=== PATIENT | female | born 1990 | race Caucasian/White ===

== ENCOUNTER 2017-06-03 11:59 | Outpatient (CLI) | payer BC, OTHER ==
[~2017-06-03] VITALS: Ht 149.9 cm; Wt 62.5 kg
[~2017-06-03 11:59] MED LIST: ANTIVERT25 MG PO; Motrin PO; Percocet 5/325,Endoc PO; ZOFRAN ODT4 MG PO
[2017-06-03 12:32] VITALS: BP 132/95
[2017-06-03] MEDS ORDERED: ZOFRAN8 MG PO (12:50)
[2017-06-03] MEDS ORDERED: PRENATAL TABLE1 EAC3 PO (12:51)
[2017-06-03] MEDS ORDERED: TYLENOL EXTRA500 MG PO (12:52)
[2017-06-03] MEDS ORDERED: ZANTAC150 MG PO (12:52)
[2017-06-03] MEDS ORDERED: ASPIR 8181 M1 PO (12:53)
[2017-06-03 12:57] VITALS: BP 131/91
[2017-06-03 13:17] VITALS: BP 120/80
[2017-06-03 13:26] LABS: ALKALINE PHOSPHATASE 149 IU/L (3-129); ANION GAP 9 MEQ/L (2-14); CHLORIDE 102 MEQ/L (99-109); GFR ESTIMATE (CALCULATED) > 59 mL/min/; GLUCOSE 66 mg/dL (70-99); POTASSIUM 3.9 MEQ/L (3.7-5.4); SAMPLE HEMOLYSIS CHECK 0; SAMPLE ICTERIC CHECK 0; SAMPLE LIPEMIA CHECK 0; SODIUM 134 MEQ/L (136-147); TOTAL BILIRUBIN 0.3 MG/DL (0.0-1.0); UREA NITROGEN (BUN) 9 mg/dL (9-23)
[2017-06-03 13:37] VITALS: BP 116/79
[2017-06-03 13:56] LABS: UR CREATININE CONCENTRATION 29.9 MG/DL
[2017-06-03 14:08] LABS: BASOPHIL COUNT 0.1 K/uL (0-0.1); EOSINOPHIL (%) 0.2 % (0-5); HEMATOCRIT 32.7 % (36.0-46.0); IMMATURE GRANULOCYTE (%) 0.3 % (0.0-0.7); INSTRUMENT ABS NEUTROPHIL CT 7.3 K/uL; LYMPHOCYTE COUNT 1.5 K/uL (1.0-2.8); MCH 28.9 PG (29.0-34.0); MCHC 33.3 G/DL (30.0-36.0); MCV 86.7 FL (83-99); MEAN PLAT.VOLUME 12.6 uM^3 (9.5-12.4); MONOCYTE (%) 5.1 % (3-12); MONOCYTE COUNT 0.5 K/uL (0-0.8); NEUTROPHIL (%) 77.9 % (45-76); NEUTROPHIL COUNT 7.3 K/uL (1.8-6.4); PLATELET COUNT 182 K/uL (156-360); RBC DIS.WIDTH-CV 12.5 % (11.8-14.6); RBC DIS.WIDTH-SD 39.4 % (39-53); RED BLOOD COUNT 3.77 M/uL (3.80-5.20); WHITE BLOOD COUNT 9.3 K/uL (4.1-10.2)
[2017-06-03 15:13] VITALS: BP 138/89
[2017-06-03 17:11] LABS: AMPHETAMINES QUANT VALUE 0 NG/ML; BARBITUATES QUANT VALUE 0 NG/ML; BENZODIAZEPINES QUANT VALUE 0 NG/ML; BENZODIAZEPINES, URINE SCREEN Negative (200 ng/mL); MARIJUANA QUANT VALUE 0 NG/ML; OPIATES QUANTITATIVE VALUE 0 NG/ML; PHENCYCLIDINE QUANT VALUE 0 NG/ML
== END 2017-06-03 17:39 | disposition home or self-care (01) ==
LOC: LDRP-OP 11:59 → 2WEST 12:00 → LDRP-OP 08-07 14:04
PROVIDERS: Nurse Practitioner
DX: O16.3 Unspecified maternal hypertension, third trimester (principal); Z3A.35 35 weeks gestation of pregnancy
CPT/HCPCS: 59025; 80053; 80306 90; 82570; 84156; 85025; G0378; J2765; J7120

== ENCOUNTER 2017-06-05 14:41 | Inpatient (IN) | payer BC, OTHER ==
[~2017-06-05] VITALS: Ht 149.9 cm; Wt 64.4 kg
[2017-06-05] VITALS (8 sets, daily range): BP systolic 131–165; BP diastolic 71–100
[~2017-06-05 14:41] MED LIST changes: +ASPIR 8181 M1 PO; +PRENATAL TABLE1 EAC3 PO; +TYLENOL EXTRA500 MG PO; +ZANTAC150 MG PO; +ZOFRAN8 MG PO
[2017-06-05 16:23] LABS: EOSINOPHIL (%) 0.3 % (0-5); HEMATOCRIT 30.2 % (36.0-46.0); IMMATURE GRANULOCYTE (%) 0.5 % (0.0-0.7); LYMPHOCYTE COUNT 1.4 K/uL (1.0-2.8); MCH 29.9 PG (29.0-34.0); MCHC 34.1 G/DL (30.0-36.0); MCV 87.5 FL (83-99); MEAN PLAT.VOLUME 12.9 uM^3 (9.5-12.4); MONOCYTE (%) 4.8 % (3-12); MONOCYTE COUNT 0.4 K/uL (0-0.8); NEUTROPHIL (%) 76.1 % (45-76); PLATELET COUNT 166 K/uL (156-360); RBC DIS.WIDTH-CV 12.7 % (11.8-14.6); RBC DIS.WIDTH-SD 39.8 % (39-53); RED BLOOD COUNT 3.45 M/uL (3.80-5.20); WHITE BLOOD COUNT 7.9 K/uL (4.1-10.2)
[2017-06-05 16:24] LABS: UR CREATININE CONCENTRATION 94.4 MG/DL
[2017-06-05 17:08] LABS: ALKALINE PHOSPHATASE 139 IU/L (3-129); ANION GAP 11 MEQ/L (2-14); CHLORIDE 107 MEQ/L (99-109); GFR ESTIMATE (CALCULATED) > 59 mL/min/; GLUCOSE 82 mg/dL (70-99); POTASSIUM 3.8 MEQ/L (3.7-5.4); SAMPLE HEMOLYSIS CHECK 0; SAMPLE ICTERIC CHECK 0; SAMPLE LIPEMIA CHECK 0; SODIUM 139 MEQ/L (136-147); UREA NITROGEN (BUN) 10 mg/dL (9-23)
[2017-06-05 17:15] LABS: TOTAL BILIRUBIN 0.2 MG/DL (0.0-1.0)
[2017-06-05] MEDS ORDERED: PERCOCET 5/31 TABLET PO (20:55)
[2017-06-05] MEDS ORDERED: MOTRIN800 MG PO (20:55)
[2017-06-06] VITALS (9 sets, daily range): BP systolic 115–154; BP diastolic 75–99
[2017-06-06 06:48] LABS: EOSINOPHIL (%) 0 % (0-5); HEMATOCRIT 27.7 % (36.0-46.0); IMMATURE GRANULOCYTE (%) 0.9 % (0.0-0.7); IMMATURE GRANULOCYTE COUNT 0.1 K/uL; INSTRUMENT ABS NEUTROPHIL CT 13.3 K/uL; LYMPHOCYTE COUNT 1.2 K/uL (1.0-2.8); MCH 30.5 PG (29.0-34.0); MCHC 34.7 G/DL (30.0-36.0); MCV 87.9 FL (83-99); MEAN PLAT.VOLUME 13.2 uM^3 (9.5-12.4); MONOCYTE (%) 1.8 % (3-12); MONOCYTE COUNT 0.3 K/uL (0-0.8); NEUTROPHIL (%) 89.1 % (45-76); NEUTROPHIL COUNT 13.3 K/uL (1.8-6.4); PLATELET COUNT 176 K/uL (156-360); RBC DIS.WIDTH-CV 12.6 % (11.8-14.6); RBC DIS.WIDTH-SD 39.8 % (39-53); RED BLOOD COUNT 3.15 M/uL (3.80-5.20); WHITE BLOOD COUNT 14.9 K/uL (4.1-10.2)
[2017-06-07 03:12] VITALS: BP 141/87
[2017-06-07 07:19] VITALS: BP 136/88
[2017-06-07 12:00] VITALS: BP 139/84
[2017-06-07 15:04] VITALS: BP 149/93
[2017-06-07 22:34] VITALS: BP 140/95
[2017-06-08] VITALS (9 sets, daily range): BP systolic 117–173; BP diastolic 74–96
[2017-06-09 03:16] VITALS: BP 119/73
[2017-06-09] MEDS ORDERED: LABETALOL HCL100 MG PO (08:18)
[2017-06-09] MEDS ORDERED: NIFEDIPINE10 MG PO (08:18)
[2017-06-09] MEDS ORDERED: DOCUSATE SODIU100 MG PO (08:18)
[2017-06-09 08:31] VITALS: BP 134/86
[2017-06-09 11:33] VITALS: BP 144/90
[2017-06-09 13:57] VITALS: BP 147/93
[2017-06-09 17:47] VITALS: BP 141/88
== END 2017-06-09 19:40 | disposition home or self-care (01) | DRG 765 ==
LOC: LDRP-OP 14:41 → 2WEST 14:42 → LDRP-OP 08-07 19:22
PROVIDERS: Midwife; Obstetrics & Gynecology
PROC: 10D00Z1 Extraction of Products of Conception, Low, Open Approach (ICD-10-PCS; principal; 2017-06-05)
DX: O14.14 Severe pre-eclampsia complicating childbirth (principal); O36.5930 Maternal care for other known or suspected poor fetal growth, third trimester, not applicable or unspecified; K58.9 Irritable bowel syndrome, unspecified; O34.211 Maternal care for low transverse scar from previous cesarean delivery; O99.62 Diseases of the digestive system complicating childbirth; Z3A.35 35 weeks gestation of pregnancy; Z37.0 Single live birth; N85.8 Other specified noninflammatory disorders of uterus; O75.89 Other specified complications of labor and delivery; R33.9 Retention of urine, unspecified
CPT/HCPCS: 59025; 80053; 80306 90; 82570; 84156; 85025; 86900; 86901; 88307; G0378; J0702; J1200; J2175; J2250; J2270; J2274; J2300; J2405; J2590; J2765; J7120